=== PATIENT | male | born 1960 | race Caucasian/White ===

== ENCOUNTER 2018-07-01 13:01 | Day surgery (SDC) | payer BC, SELFPAY ==
[2018-07-01 13:43] VITALS: BP 134/84; PULSE 85; RESP 16; TEMP 35.6; O2SAT 98
--- NOTE | 2018-07-01 13:53 | W.PM.DSUDISC ---
Discharge Plan Disposition Patient Disposition: HOME Condition: Good Discharge Details Reason For Visit: TRIGGER FINGER Attending Provider: Carson Garcia Primary Care Provider: Anais Chaney Home Meds and New Rx's Prescriptions: New acetaminophen 500 mg tablet 1,000 mg PO Q8H PRN (Reason: pain) Qty: 60 RF: 3 ibuprofen 600 mg tablet 600 mg PO TID PRNQty: 60 RF: 3 Discontinued ibuprofen [Advil] 200 MG tablet 200 mg PO RF: 0 Discharge Instructions Stand Alone Forms: Radha Rhodes Finger Release Referrals: Carson Garcia MD [ [facility] STAFF PHYSICIAN] - Activity:: Elevate Remove Dressings/Wound Care:: 48 hours Shower/Bathe:: 48 hours Diet:: As Tolerated Discharge Orders Discharge Orders: Discharge Order (Routine); Ordered 07/01/18 Ordered By: Carson Garcia DS: Diagnosis Discharge Diagnosis (1) Trigger thumb, left thumb: Status: Acute (2) Trigger finger, left index finger: Status: Acute
[2018-07-01] MEDS: Sodium Bicarbonate 50 MEQ/50 ML VIAL (14:11)
[2018-07-01] MEDS: Lidocaine 1% Pres-Free 5 ML VIAL (14:11)
[2018-07-01] MEDS: Bupivacaine 0.5% Pres-Free 30 ML VIAL (14:34)
--- NOTE | 2018-07-02 07:31 | ROE_ITS ---
Date of service: 07/01/18 Time of Service: 15:26 Operative Note DATE OF PROCEDURE: 07/01/18 PRE-OP DIAGNOSIS: Trigger Finger -left thumb and index POST-OP DIAGNOSIS: same PROCEDURE: Trigger Finger Release -left thumb and index SURGEON: Carson Garcia ANESTHESIA: local ESTIMATED BLOOD LOSS: 20 PATHOLOGY: none sent TOURNIQUET TIME: 0 COMPLICATIONS: None Patient was transported to: same day Patient's condition: stable Indications: I have seen Wesly in clinic for symptoms of a trigger finger. The catching, clicking, locking, and pain limited function. The diagnosis of trigger finger was evident. The symptoms had not responded to conservative measures. I discussed trigger finger release with the patient. I reviewed the risks of the procedure to include, but not limited to, bleeding, infection, pain, stiffness, incomplete release, damage to nerves or vessels, continued catching, recurrence. Wesly has had previous trigger fingers which cause significant disability. They also has failed conservative treatment options were quad release. After reviewing the risk of the procedure and the possible alternatives, the patient elected to proceed. Findings: There was a tightened A1 yogesh which was released. The flexor tendons were inspected and the patient was able to move the finger without any catching, clicking, or locking. Procedure Description: Wesly was greeted in the preoperative holding area where the correct side was identified and marked. The consent was reviewed with the patient and signed. All questions were answered. Wesly was taken back to the operating room. The patient was placed into the supine position on the operating room table with the left arm on an arm board. All bony prominences were well padded. No prophylactic antibiotics were administered since this was a clean, elective hand surgical case. The left arm was then prepped with Chloraprep and draped in a standard fashion with stockinette and extremity drape. A timeout to confirm correct identity, side and site, procedure, allergies, anesthesia, and medical concerns was performed. The surgical site was marked as a longitudinal incision directly over the A1 yogesh of the index finger and thumb. This was confirmed with palpation during finger flexion. This area, overlying the metacarpal head, was then anesthetized with 1% Lidocaine. Both fingers were anesthetized. The patient tolerated this well and once the anesthetic had setup, the procedure began. A longitudinal incision was made through skin only, approximately 1cm, starting with the index finger. The deep tissues were dissected bluntly. Once the A1 yogesh and flexor tendons were identified the soft tissue including neurovascular structures were retracted medially and laterally. There were no crossing structures over the A1 yogesh. The proximal edge of the yogesh was identified and the yogesh was incised with tenotomy scissors. There was a release of the tendons once this was fully released. The tendons were then removed from the wound and inspected. The tendons were then returned and the patient was asked to move the finger into deep flexion and back to extension. There was no recreation of the pre- operative symptoms. The hand was then once more inspected for any A0 yogesh or area of possible constriction. There was some notable bleeding but no source identified. With some manual pressure using a Ray-Nadir, this stopped on its own. The wound was then irrigated and the skin was closed with a 4-0 Nylon. Attention was then turned to the thumb. A longitudinal incision was made through skin only, approximately 1cm. The deep tissues were dissected bluntly. Once the A1 yogesh and flexor tendons were identified the soft tissue including neurovascular structures were retracted medially and laterally. There were no crossing structures over the A1 yogesh. The proximal edge of the yogesh was identified and the yogesh was incised with tenotomy scissors. There was a release of the tendons once this was fully released. The tendons were then removed from the wound and inspected. The tendons were then returned and the patient was asked to move the finger into deep flexion and back to extension. There was no recreation of the pre-operative symptoms. The hand was then once more inspected for any area of possible constriction. The wound was then irrigated and the skin was closed with a 4-0 Nylon. The wounds were dressed with gauze and a Conform dressing. The patient tolerated the procedure well and was returned to the Same Day Surgery area in a stable condition suffering no known complication.
== END 2018-07-01 14:59 | disposition home or self-care (01) ==
PROVIDERS: PCP Nurse Practitioner Family; Visit Provider Student in an Organized Health Care Education/Training Program
PROC: (CPT 26055; principal; 2018-07-01 13:45)
DX: M65.312 Trigger thumb, left thumb (principal); M65.322 Trigger finger, left index finger
CPT/HCPCS: 26055

== ENCOUNTER 2020-05-21 16:00 | Outpatient (CLI) | payer BC, SELFPAY ==
--- NOTE | 2020-05-21 15:30 | DI.RAD_ITS ---
EXAM: XR KNEE RT 3V AP,LAT,ARLINE CLINICAL HISTORY: right knee pain. TECHNIQUE: 2D digital imaging was performed. COMPARISON: No exams were available for comparison FINDINGS: There is no evidence of fracture but there is a joint effusion is seen in the suprapatellar bursa on the lateral view in addition there are moderate degenerative changes medial compartment lateral parmjit rtment. On the lateral view there is a density projected over the patellar ligament, possibly foreig n body measuring 2 millimeters. Bone density is age-appropriate. No osseous lesions. IMPRESSION: DATA REPOSITORY: RADIATION DOSE DELIVERED:
== END 2020-05-21 16:20 ==
PROVIDERS: PCP Nurse Practitioner Family; Referring Provider Nurse Practitioner Family; Visit Provider Student in an Organized Health Care Education/Training Program
DX: M25.561 Pain in right knee (principal); M25.461 Effusion, right knee
CPT/HCPCS: 73562

== ENCOUNTER 2020-05-30 06:24 | Day surgery (SDC) | payer BC, SELFPAY ==
[2020-05-30 06:28] VITALS: BP 144/88; PULSE 73; RESP 16; TEMP 36.6; O2SAT 98
--- NOTE | 2020-05-30 07:22 | W.PM.DSUDISC ---
Discharge Plan Disposition Patient Disposition: HOME Condition: Good Discharge Details Attending Provider: Carson Garcia Primary Care Provider: Oneida Gamble Home Meds and New Rx's Prescriptions: No Action acetaminophen 500 mg tablet 1,000 mg PO Q8H PRN (Reason: pain) Qty: 60 RF: 3 ibuprofen 600 mg tablet 600 mg PO TID PRNQty: 60 RF: 3 Discharge Instructions Stand Alone Forms: Radha Rhodes Finger Release Referrals: Carson Garcia MD [ [facility] STAFF PHYSICIAN] - Activity:: Elevate Remove Dressings/Wound Care:: 48 hours Shower/Bathe:: 48 hours Diet:: As Tolerated Discharge Orders Discharge Orders: Discharge Order (Routine); Ordered 05/30/20 Ordered By: Carson Garcia DS: Diagnosis Discharge Diagnosis (1) Trigger thumb, right thumb: Status: Acute (2) Trigger finger, right ring finger: Status: Acute
[2020-05-30 08:38] VITALS: BP 136/77; PULSE 67; RESP 15; O2SAT 100
[2020-05-30 09:07] VITALS: BP 132/94; PULSE 68; RESP 15; O2SAT 100
[2020-05-30] MEDS: Sodium Bicarbonate 50 MEQ/50 ML VIAL (09:16)
--- NOTE | 2020-05-30 22:18 | ROE_ITS ---
Date of service: 05/30/20 Time of Service: 08:49 Operative Note Operative Note DATE OF PROCEDURE: 05/30/20 PRE-OP DIAGNOSIS: Right Trigger Thumb and Ring Finger Trigger Finger POST-OP DIAGNOSIS: same PROCEDURE: Trigger Finger Release - Right Thumb and Right Ring Finger SURGEON: Carson Garcia ANESTHESIA: local PATHOLOGY: none sent COMPLICATIONS: None Patient was transported to: same day Patient's condition: stable Indications: I have seen Wesly in clinic for symptoms of a trigger finger of the right ring finger and right thumb. The catching, clicking, locking, and pain limited function. The diagnosis of trigger finger was evident. The symptoms had not responded to conservative measures. I discussed trigger finger release with the patient. I reviewed the risks of the procedure to include, but not limited to, bleeding, infection, pain, stiffness, incomplete release, damage to nerves or vessels, continued catching, recurrence. Despite these risks, the patient elected to proceed. Findings: There was a tightened A1 yogesh which was released. There was a cyst over the A1 yogesh of the thumb which was resected. The flexor tendons were inspected and the patient was able to move the finger without any catching, clicking, or locking. Procedure Description: Wesly was greeted in the preoperative holding area where the correct side was identified and marked. The consent was reviewed with the patient and signed. All questions were answered. Wesly was taken back to the operating room. The patient was placed into the supine position on the operating room table with the right arm on an arm board. All bony prominences were well padded. No prophylactic antibiotics were adminis tered since this was a clean, elective hand surgical case. The right arm was then prepped with Chloraprep and draped in a standard fashion with stockinette and extremity drape. A timeout to confirm correct identity, side and site, procedure, allergies, anesthesia, and medical concerns was performed. The surgical site was marked as a longitudinal incision directly over the A1 yogesh of the ring finger and a Martina type incision was made over the thumb A1 yogesh. This was confirmed with palpation during finger flexion. These areas, overlying the metacarpal head, was then anesthetized with 1% Lidocaine buffered with Sodium Bicarbonate. Wesly tolerated this well and once the anesthetic had setup, the procedure began. A Martina type incision of the thumb was made through skin only. The deep tissues were dissected bluntly. There was a fatty type cyst sitting on top of the A1 yogesh. This was adherent to the A1 yogesh. It was resected which showed the A1 yogesh. Once the A1 yogesh and flexor tendons were identified the soft tissue including neurovascular structures were retracted medially and laterally. There were no crossing structures over the A1 yogesh. The proximal edge of the yogesh was identified and the yogesh was incised with tenotomy scissors. There was a release of the tendons once this was fully released. The tendons were then removed from the wound and inspected. Excess synovium was resected. There was some fraying of the FPL tendon and this was resected and smoothed. The tendons were then returned and the patient was asked to move the finger into deep flexion and back to extension. There was no recreation of the pre-operative symptoms. The hand was then once more inspected for any A0 yogesh or area of possible constriction. The wound was then irrigated and the skin was closed with a 4-0 Nylon. Attention was then turned to the ring finger. A longitudinal incision of the ring finger was made through skin only, approximately 1cm. The deep tissues were dissected bluntly. Once the A1 yogesh and flexor tendons were identified the soft tissue including neurovascular structures were retracted medially and laterally. There were no crossing structures over the A1 yogesh. The proximal edge of the yogesh was identified and the yogesh was incised with tenotomy scissors. There was a release of the tendons once this was fully released. The tendons were then removed from the wound and inspected. Excess synovium was resected. The tendons were then returned and the patient was asked to move the finger into deep flexion and back to extension. There was no recreation of the pre-operative symptoms. The hand was then once more inspected for any A0 yogesh or area of possible constriction. The wound was then irrigated and the skin was closed with a 4-0 Nylon. The wounds were dressed with gauze and a Conform dressing. The patient tolerated the procedure well and was returned to the Same Day Surgery area in a stable condition suffering no known complication.
== END 2020-05-30 09:25 | disposition home or self-care (01) ==
PROVIDERS: PCP Nurse Practitioner Family; Visit Provider Student in an Organized Health Care Education/Training Program
PROC: (CPT 26055; principal; 2020-05-30 08:30)
DX: M65.311 Trigger thumb, right thumb (principal); M65.341 Trigger finger, right ring finger
CPT/HCPCS: 26055

== ENCOUNTER 2021-05-24 12:35 | Outpatient (CLI) | payer BC, SELFPAY ==
--- NOTE | 2021-05-24 13:19 | DI.RAD_ITS ---
Exam(s) XR THORACIC SPINE COMPLETE EXAM: XR THORACIC SPINE COMPLETE CLINICAL HISTORY: ACUTE MIDLINE THORACIC BACK PAIN. TECHNIQUE: 2D digital imaging was performed. COMPARISON: No exams were available for comparison FINDINGS: There is slight loss of height of superior endplate, as seen on the lateral view. This may represent a compression fracture, indeterminate. There is no abnormal widening of the paraspinal lines. No s coliosis. No osseous lesions seen. IMPRESSION: Mild T8 compression fracture, age indeterminate. DATA REPOSITORY: RADIATION DOSE DELIVERED:
== END 2021-05-24 12:55 ==
PROVIDERS: PCP Nurse Practitioner Family; Visit Provider Family Medicine
DX: M54.6 Pain in thoracic spine (principal); M48.54XA Collapsed vertebra, not elsewhere classified, thoracic region, initial encounter for fracture
CPT/HCPCS: 72072

== ENCOUNTER 2021-06-04 04:15 | Outpatient (CLI) | payer BC, SELFPAY ==
[2021-06-06 00:51] LABS: Vitamin D 25 Total 28.5 ng/mL (30-100)
== END 2021-06-04 04:16 | disposition home or self-care (01) ==
LOC: LBO 04:16
PROVIDERS: PCP Nurse Practitioner Family; Visit Provider Student in an Organized Health Care Education/Training Program
DX: M48.54XA Collapsed vertebra, not elsewhere classified, thoracic region, initial encounter for fracture (principal)
CPT/HCPCS: 36415; 82306

== ENCOUNTER 2022-07-29 06:10 | Day surgery (SDC) | payer BC, SELFPAY ==
[2022-07-29 06:40] VITALS: BP 137/85; PULSE 78; RESP 16; TEMP 36.6; O2SAT 96
[2022-07-29] MEDS: Lactated Ringers 1,000 ML 80 ML IV (06:55)
--- NOTE | 2022-07-29 07:11 | W.PM.DSUDISC ---
Date of service: 07/29/22 Time of Service: 07:13 Discharge Plan Disposition Patient Disposition: Home Condition: Good Discharge Details Reason For Visit: Left carpal tunnel syndrome Attending Provider: Carson Garcia Primary Care Provider: Ye Herbert Home Meds and New Rx's Prescriptions: Continued acetaminophen 500 mg tablet 1,000 mg PO Q8H PRN (Reason: pain) Qty: 60 3RF ibuprofen 600 mg tablet 600 mg PO TID PRNQty: 60 3RF Discharge Instructions Stand Alone Forms: Radha Dye Tunnel Release Activity:: Elevate Remove Dressings/Wound Care:: 48 hours Shower/Bathe:: 48 hours Diet:: As Tolerated Discharge Orders Discharge Orders: Discharge Order (Routine); Ordered 07/29/22 Ordered By: Jaclyn Naranjo DS: Diagnosis Discharge Diagnosis (1) Carpal tunnel syndrome of left wrist: Status: Acute
[2022-07-29] MEDS: ceFAZolin 2 GM/50 ML BAG IVPB (07:31)
[2022-07-29] MEDS: Sodium Bicarbonate 50 MEQ/50 ML VIAL (07:38)
[2022-07-29] MEDS: Lidocaine 1% Multi-Dose W/EPI 1/100,000 50 ML VIAL (07:38)
[2022-07-29 07:50] VITALS: BP 155/93; PULSE 73; RESP 16; TEMP 36.2; O2SAT 100
--- NOTE | 2022-07-29 16:03 | ROE_ITS ---
Date of service: 07/29/22 Time of Service: 07:50 Operative Note Operative Note DATE OF PROCEDURE: 07/29/22 PRE-OP DIAGNOSIS: Left Carpal Tunnel Syndrome POST-OP DIAGNOSIS: same PROCEDURE: Left Endoscopic Carpal Tunnel Release SURGEON: Carson Garcia ANESTHESIA TYPE: Local By Surgeon Refer to Anesthesia Record ESTIMATED BLOOD LOSS: 0 PATHOLOGY: none sent TOURNIQUET TIME: 6 COMPLICATIONS: None Patient was transported to: same day Patient's condition: stable Indications: I have seen Wesly in clinic for symptoms of carpal tunnel syndrome. The numbness, tingling, and pain limited function. Clinical exam findings confirmed the diagnosis of carpal tunnel syndrome. Nonoperative measures such as bracing, time, activity modifications had been tried but disability and pain persisted. I discussed carpal tunnel release with the patient. I reviewed the risks of the procedure to include, but not limited to, bleeding, infection, pain, stiffness, incomplete release, damage to nerves or vessels, persistent numbness, recurrence. Despite these risks, the patient elected to proceed. Findings: There was tightened carpal tunnel. This was dilated and released successfully with the endoscopic with increased space within the tunnel. The antebrachial fascia was released proximally freeing the median nerve at the wrist. Procedure Description: Wesly was greeted in the preoperative holding area where the correct side was i dentified and marked. The consent was reviewed with the patient and signed. The history and physical was updated. All questions were answered. He was taken back to the operating room. The patient was placed into the supine position on the operating room table with the left arm on an arm board. A nonsterile tourniquet was placed high onto the arm. All bony prominences were well padded. Prophylactic antibiotics in the form of Cefazolin were administered. The left arm was then prepped with Chloraprep and draped in a standard fashion with stockinette and extremity drape. A timeout to confirm correct identity, side and site, procedure, allergies, anesthesia, and medical concerns was performed. The surgical site was marked in the volar wrist creases in line with the radial border of the fourth ray. This area was anesthetized with approximately 10cc of 1% Lidocaine buffered with sodium bicarbonate. The limb was then exsanguinated with an Esmarch. The skin was incised with a 15 blade, approximately 1cm. The skin only was cut and the deeper tissue was dissected bluntly with a tenotomy scissor, avoiding passing nerve and venous structures. The fascia was penetrated and opened bluntly. A two-prong skin hook was placed under this proximal fascial edge. A series of hamate finders were used to identify and dilate the carpal tunnel. Synovial elevator was used to free synovial attachments to the underside of the transverse carpal ligament. My thumb was kept in the palm to janet the distal extent of the carpal tunnel and correctly position the hand. The [employer]aire endoscope was inserted without difficulty and without resistance. Excellent visualization showed horizontally running fibers of the transverse carpal ligament (TCL). The distal extent of the TCL was visualized and the end of the scope palpated with the thumb. The blade was elevated and withdrawn from distal to proximal. The TCL was split into two flaps. The endoscope was reinserted to confirm complete release and any remnant ligament was incised. The scope was withdrawn and the proximal aspect of the carpal tunnel was grossly inspected and appeared release with the median nerve visible. The antebrachial fascia at the level of the wrist was then freed from the overlying skin and then the underlying median nerve with blunt dissection. This was transected longitudinally for about 3cm proximal to the wrist incision. The wound was then irrigated with easy flow of irrigant distally and proximally. The incision was closed with a single 4-0 Nylon suture. The wound was dressed w ith Xeroform, Gauze, Kerlix and Abdulkadir. The tourniquet was deflated with the initial dressing and held with some pressure. Blood flow returned easily to all digits with capillary refill less than 2 seconds. The patient tolerated the procedure well and was returned to the Same Day Surgery area in a stable condition suffering no known complication.
== END 2022-07-29 08:25 | disposition home or self-care (01) ==
PROVIDERS: PCP Family Medicine; Visit Provider Student in an Organized Health Care Education/Training Program
PROC: 01N54ZZ Release Median Nerve, Percutaneous Endoscopic Approach (ICD-10-PCS; CPT 29848; principal; 2022-07-29 07:30)
DX: G56.02 Carpal tunnel syndrome, left upper limb (principal)
CPT/HCPCS: 29848; J0690; J2250

== ENCOUNTER 2024-05-02 11:27 | Day surgery (SDC) | payer BC, SELFPAY ==
--- NOTE | 2024-05-02 07:44 | W.PM.DSUDISC ---
Date of service: 05/02/24 Discharge Plan Disposition Patient Disposition: Home Condition: Good Discharge Details Reason For Visit: Left ring trigger finger Attending Provider: Carson Garcia Primary Care Provider: Edmundo Holloway Home Meds and New Rx's Prescriptions: Continued triamcinolone acetonide 0.1 % cream 1 applic topical DAILY mupirocin 2 % ointment 1 applic topical BID PRN cholecalciferol (vitamin D3) 25 mcg (1,000 unit) capsule 25 mcg PO DAILY tumeric PO fluocinonide 0.05 % cream 1 applic topical BID-QID PRN valacyclovir [Valtrex] 1 gram tablet 1,000 mg PO BID acetaminophen 500 mg tablet 1,000 mg PO Q8H PRN (Reason: pain) Qty: 60 3RF ibuprofen 600 mg tablet 600 mg PO TID PRNQty: 60 3RF Discharge Instructions Stand Alone Forms: Radha Rhodes Finger Release Activity:: Activity as Tolerated Remove Dressings/Wound Care:: 48 hours Shower/Bathe:: 48 hours Diet:: As Tolerated Discharge Orders Discharge Orders: Discharge Order (Routine); Ordered 05/02/24 Ordered By: Jaclyn Persaud
[2024-05-02 11:48] VITALS: BP 132/91; PULSE 82; RESP 18; TEMP 36.6; O2SAT 99
[2024-05-02] MEDS: Lidocaine 1% Pres-Free W/EPI 1/200,000 10 ML VIAL (12:13)
[2024-05-02] MEDS: Sodium Bicarbonate 50 MEQ/50 ML VIAL (12:13)
[2024-05-02 12:29] VITALS: BP 143/82; PULSE 76; RESP 18; TEMP 36.3; O2SAT 98
--- NOTE | 2024-05-02 12:49 | ROE_ITS ---
Operative Note Operative Note PRE-OP DIAGNOSIS: Left Ring Finger Trigger Finger POST-OP DIAGNOSIS: same PROCEDURE: Trigger Finger Release - Left Ring Finger SURGEON: Carson Garcia ANESTHESIA TYPE: Local By Surgeon Refer to Anesthesia Record ESTIMATED BLOOD LOSS: 0 PATHOLOGY: none sent COMPLICATIONS: None Patient was transported to: same day Patient's condition: stable Indications: I have seen Wesly in clinic for symptoms of a trigger finger. The catching, clicking, locking, and pain limited function. The diagnosis of trigger finger was evident. The symptoms had not responded to conservative measures. I discu ssed trigger finger release with the patient. I reviewed the risks of the procedure to include, but not limited to, bleeding, infection, pain, stiffness, incomplete release, damage to nerves or vessels, continued catching, recurrence. Despite these risks, the patient elected to proceed. Findings: There was a tightened A1 yogesh which was released. The flexor tendons were inspected and the patient was able to move the finger without any catching, clicking, or locking. Procedure Description: Wesly was greeted in the preoperative holding area where the correct side was identified and marked. The consent was reviewed with the patient and signed. All questions were answered. He was taken back to the operating room. The patient was placed into the supine position on the operating room table with the left arm on an arm board. All bony prominences were well padded. No prophylactic antibiotics were administered since this was a clean, elective hand surgical case. The left arm was then prepped with Chloraprep and draped in a standard fashion with stockinette and extremity drape. A timeout to confirm correct identity, side and site, procedure, allergies, anesthesia, and medical concerns was performed. The surgical site was marked as a longitudinal incision directly over the A1 yogesh of the involved digit. This was confirmed with palpation during finger flexion. This area, overlying the metacarpal head, was then anesthetized with 1% Lidocaine. The patient tolerated this well and once the anesthetic had setup, the procedure began. A longitudinal incision was made through skin only, approximately 1cm. The deep tissues were dissected bluntly. Once the A1 yogesh and flexor tendons were identified the soft tissue including neurovascular structures were retracted medially and laterally. There were no crossing structures over the A1 yogesh. The proximal edge of the yogesh was identified and the yogesh was incised with tenotomy scissors. There was a release of the tendons once this was fully released. He was asked to move the finger into deep flexion and back to extension. There was no recreation of the pre-operative symptoms. The hand was then once more inspected for any A0 yogesh or area of possible constriction. The wound was then irrigated and the skin was closed with a 4-0 Nylon. This was dressed with gauze and a Conform dressing. The patient tolerated the procedure well and was returned to the Same Day Surgery area in a stable condition suffering no known complication. Date of Procedure: 05/02/24
== END 2024-05-02 12:35 | disposition home or self-care (01) ==
LOC: SUR 11:27
PROVIDERS: PCP Family Medicine; Visit Provider Student in an Organized Health Care Education/Training Program
PROC: (CPT 26055; principal; 2024-05-02 13:15)
DX: M65.342 Trigger finger, left ring finger (principal)
CPT/HCPCS: 26055; J2004

== ENCOUNTER 2024-10-20 14:25 | Outpatient (CLI) | payer BC, SELFPAY ==
[2024-10-20 14:26] LABS: ESR 3 mm/hr (0-20)
[2024-10-20 14:27] LABS: HCT 39.8 % (40.0-50.0); HGB 13.5 g/dL (13.5-17.5); MCHC 33.9 % (32.0-36.0); MCV 91 fL (80-95); MPV 9.5 fL (8.0-11.0); Platelet Count 227 10^3/uL (130-400); RBC 4.36 10^6/uL (4.36-5.78); RDW 12.5 % (11.8-14.1); RDW-SD 41.7 fL; WBC 5.23 10^3/uL (4.4-10.8)
[2024-10-20 15:08] LABS: Alkaline Phosphatase 66 U/L (46-116); C-Reactive Protein < 0.50 mg/dL (<or=0.5); Creatine Kinase 110 U/L (39-308)
== END 2024-10-20 14:26 | disposition home or self-care (01) ==
LOC: LBO 14:25
PROVIDERS: PCP Family Medicine; Visit Provider Student in an Organized Health Care Education/Training Program
DX: M25.551 Pain in right hip (principal); M25.552 Pain in left hip
CPT/HCPCS: 36415; 82550; 85027; 85652; 84075; 86140

== ENCOUNTER 2024-11-18 00:28 | Outpatient (CLI) | payer BC, SELFPAY ==
--- NOTE | 2024-11-18 07:15 | DI.MRI_ITS ---
Exam(s) MR LUMBAR SPINE WO EXAM: MR LUMBAR SPINE WO CLINICAL HISTORY: PAIN,lumbar spondylosis,m47.816. TECHNIQUE: Multiplanar multisequence MRI of the Lumbar spine was performed. COMPARISON: No exams were available for comparison FINDINGS: Conus medullaris is at normal level. There is no evidence of conus mass nor subjacent clumping of intrathecal nerve roots to suggest arachnoiditis. The distal thecal sac appears unremarkable.There is no evidence of Tarlov intrasacral cysts nor other significant findings within the sacral canal Bones:There are no fractures nor ominous osseous lesions in the lumbar vertebral bodies and visualized sacrum. Schmorl's node invagination noted in the mid aspect of the superior endplate of T12 vertebral body. This is not associated with surrounding marrow edema and os is non acute or subacute finding. With respect to the individual disc levels... T12-L1: Unremarkable L1-2: Normal disc height and signal. No disc herniation nor central canal stenosis.No foraminal stenosis L2-3: Normal disc height. Posteriorly there is no disc herniation but there is relatively symmetrical annular bulging into the floor both exiting neural foramina. There is, however, no significant foraminal stenosis on either side at this level. Central canal dimensions are lower normal.No significant facet arthropathy evident. L3-4: Normal disc height and signal. Posteriorly there is some annular bulging in the floor of the exiting neural foramina bilaterally but no significant foraminal stenosis evident. No central canal stenosis. No facet arthropathy. L4-5: This level exhibits normal disc height. Posteriorly there is broad annular bulging. There is severe central spinal canal stenosis at this level related to broad annular bulging and short AP dimensions of the pedicles. There are mild degenerative changes in the right facet joint; no obvious degenerative changes in the left facet joint. No prominent ligamentum flavum hypertrophy. There is moderate bilateral foraminal stenosis at this level. L5-S1: This level exhibits some disc height loss bilaterally.. There is broad annular bulging with a superimposed small central subligamentous disc herniation. This slightly indents the anterior thecal sac. There is mild central canal stenosis. There is moderate-severe bilateral foraminal stenosis due to the annular bulging and some disc height loss at this level. Soft tissues: There is a large cyst in the medial aspect of the right kidney which measures 5 cm. IMPRESSION: 1. There is severe central spinal canal stenosis at L4-5 level due to broad annular bulging, short AP dimensions the pedicles are only mild degenerative changes in the facet joints. There is moderate bilateral foraminal stenosis at this level. 2. There is mild central spinal canal stenosis at L5-S1 level described above. However, there is more prominent bilateral foraminal stenosis at this level. 3. Other findings as above. DATA REPOSITORY:
--- NOTE | 2024-11-18 07:15 | DI.MRI_ITS ---
Exam(s) MR PELVIS WO EXAM: MR PELVIS WO CLINICAL HISTORY: PAIN,ischial bursitis,m70.70 TECHNIQUE: Multiplanar multisequence MRI of Pelvis was performed COMPARISON: MR MR LUMBAR SPINE WO from 11/18/2024 FINDINGS: OSSEOUS: No evidence of pelvic nor hip fractures. No evidence of avascular necrosis of the hips. No significant osseous lesions in the pelvis and hips. ARTICULATIONS: Hips: Minimal degenerative changes. No hip joint effusions. No degenerative subarticular cysts nor large chondral defects.. No obvious labral tears nor evidence of paralabral cysts in the hips. Sacroiliac joints: Unremarkable. No signal abnormality to suggest sacroiliitis. No ankylosis. Symphysis pubis: Unremarkable. No evidence of osteitis symphysis pubis. MUSCULOTENDINOUS STRUCTURES: Musculotendinous structures: Musculotendinous structures demonstrate no abnormality. There is significant signal abnormality lateral to the greater trochanter of the right hip at the gluteus medius tendon insertion level. Gluteus minimus tendon appears unremarkable. There is very mild increase signal in the soft tissues adjacent to the right hamstrings attachment site on the ischial tuberosity but there does not appear to be high-grade tear of the tendon nor prominent bursal fluid in this region. No abnormal signal evident in the quadratus femoris musculature (which would suggest an element of impingement syndrome) OTHER: Incidentally noted is significant disc disease at L4-5 and L5-S1 levels. See separate lumbar spine MRI study dictation. There is sigmoid diverticulosis without evidence of obvious acute diverticulitis. Prostate size upper normal. Seminal vesicles unremarkable. No obturator adenopathy. IMPRESSION: 1. Right hip gluteus medius tendinitis/tearing at the level the greater trochanter. No similar finding seen on the opposite-left side. 2. Very mild increased signal seen in the soft tissues around the common hamstrings tendon insertion on the right ischial tuberosity. There is no high- grade tear and no fluid collection to suggest ischial bursitis. 3. Sacroiliac joints appear unremarkable. DATA REPOSITORY:
== END 2024-11-18 00:48 ==
LOC: DI 00:28
PROVIDERS: PCP Family Medicine; Visit Provider Student in an Organized Health Care Education/Training Program
DX: M47.816 Spondylosis without myelopathy or radiculopathy, lumbar region (principal); M70.71 Other bursitis of hip, right hip
CPT/HCPCS: 72148; 72195